=== PATIENT | female | born 1965 | race Caucasian/White ===

== ENCOUNTER 2022-10-04 00:33 | Emergency (ER) | payer MEDICARE, OTHER ==
[~2022-10-04] VITALS: Ht 165.1 cm; Wt 74.8 kg
--- NOTE | 2022-10-04 01:05 | NUR ---
Dr. Barahona at bedside. MSE in proress.
[2022-10-04] MEDS ORDERED: risperiDONE 2 MG TABLET PO SCH (01:15)
[2022-10-04] MEDS ORDERED: IV NORMAL SALINE 1000 ML BAG IV ONE (01:15)
--- NOTE | 2022-10-04 01:27 | NUR ---
Risperdal 2mg not available in the pyxis. notified
[2022-10-04] MEDS ORDERED: OLANZAPINE 5 MG TABLET ONE (01:29)
[2022-10-04] MEDS ORDERED: OLANZAPINE 5 MG TABLET PO ONE (01:30)
[2022-10-04 01:32] LABS: MEAN CORPUSCULAR HEMOGLOBIN 31.5 uug (24.7-32.8); MEAN CORPUSCULAR VOLUME 90.6 fL (75.5-95.3); PLATELET COUNT (AUTO) 309 K/uL (179-408)
[2022-10-04 01:45] LABS: ALANINE AMINOTRANSFERASE 15 U/L (14-59); ALKALINE PHOSPHATASE 54 U/L (50-136); ASPARTATE AMINOTRANSFERASE 11 U/L (15-37); BILIRUBIN,DIRECT 0.1 mg/dL (0.0-0.2); BILIRUBIN,TOTAL 0.7 mg/dL (0.2-1.0); CARBON DIOXIDE 27 mmol/L (21-32); CHLORIDE 95 mmol/L (98-107); CREATININE 0.9 mg/dL (0.6-1.3); GLUCOSE 114 mg/dL (74-106); POTASSIUM 3.1 mmol/L (3.5-5.1); TOTAL PROTEIN, SERUM 8.3 g/dL (6.4-8.2); UREA NITROGEN, BLOOD 11 mg/dL (7-18)
[2022-10-04 01:51] LABS: *BILIRUBIN,URIN NEGATIVE (NEGATIVE); *BLOOD, URINE 1+ (NEGATIVE); *CLARITY,URINE CLEAR (CLEAR); *COLOR,URINE YELLOW (YELLOW); *KETONES,URINE NEGATIVE (NEGATIVE); *UROBILINOGEN,URINE 0.2 E.U./dl (NORMAL); LEUKOCYTE ESTERASE ,URINE NEGATIVE (NEGATIVE); NITRITE, URINE NEGATIVE (NEGATIVE); UGLUCOSE NEGATIVE (NEGATIVE)
[2022-10-04 01:54] LABS: ETHANOL < 3 MG/DL (0-0)
[2022-10-04 02:00] LABS: *AMPHETAMINE, URINE POSITIVE (NEGATIVE); *CANNABINOID, URINE POSITIVE (NEGATIVE); *COCCAINE, URINE POSITIVE (NEGATIVE); *PHENCYCLIDINE SCREEN,URINE NEGATIVE (NEGATIVE)
[2022-10-04 02:01] LABS: BACTERIA,URINE NONE SEEN /HPF (NONE SEEN); SQUAMOUS EPITHELIAL CELL,UR FEW /HPF (NONE SEEN); WBC,URINE 0-3 /HPF (0-3)
[2022-10-04 02:03] LABS: *URINE HCG, QUAL NEGATIVE (NEGATIVE)
[2022-10-04 02:06] LABS: ACETAMINOPHEN < 2.0 ug/mL (10-30)
[2022-10-04] MEDS ORDERED: POTASSIUM CHLORIDE 20 MEQ TAB.PRT.SR ONE (02:11)
--- NOTE | 2022-10-04 02:11 | NUR ---
called patient safety manager Amparo for psych eval
[2022-10-04] MEDS ORDERED: POTASSIUM CHLORIDE 20 MEQ TAB.PRT.SR PO ONE (02:15)
--- NOTE | 2022-10-04 04:17 | NUR ---
Amparo arrived to unit.
--- NOTE | 2022-10-04 04:39 | NUR ---
Staying until morning for psych eval from psychiatrist.
[2022-10-04] MEDS ORDERED: LORAZEPAM 0.5 MG TABLET PO ONE (04:45)
[2022-10-04] MEDS ORDERED: LORAZEPAM 1 MG TABLET ONE (04:48)
--- NOTE | 2022-10-04 06:30 | NUR ---
Patient sleeping. NAD noted.
--- NOTE | 2022-10-04 07:17 | NUR ---
Report given to ERIC Ramey.
--- NOTE | 2022-10-04 08:52 | NUR ---
0718am: Bank Analyst assumes care: Per nursing SBAR from previous night custodian nurse Rosemary, this patient is waiting for the psychiatrist to come to ER. Dr Taylor and Dr Marshall were called. 0730am: 1st contact with patient: she is asleep, easily arousable, oriented x4, her respiration:easy, non-labored, even and symmetrical. Patient denies suicidal or homicidal thoughts at this time. 0832am: Patient is eating hot breakfast tray with good appetite. Patient is for discharge now per Dr Frances. Toiletries were provided as well. 0834am: Patient discharged to home in stable condition. Written and verbal after care instructions given. Patient verbalized understanding and compliance of instructions. Stressed follow up with a psychiatrist or return to ER for worsening s/s. Patient said that she will get fresh clothes in her [employer] car. Patient was instructed that she can use our ER waiting room's bathroom. hotel security officer Nura was updated accordingly.
--- NOTE | 2022-10-04 09:13 | NUR ---
SW consult for patient in the ER for mental health resources. Patient is a 57 year old female that is alert and oriented X4. Patient presents with depressed mood and congruent affect. Patient states her primary contact is her father, Georges Khan ([phone]). Patient states that she currently lives at [address] [place] [address]. 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 Patient states she has a history of substance abuse and the toxicology report is positive for amphetamines, cocaine and cannabinoids. SIMON provided the patient with substance abuse resources for [address] [address] ([phone]), [facility] [address] [facility] [address] ([phone]), and [address] [address] ([phone]). Patient denies suicidal or homicidal ideation. SW provided emotional support, validation, and coping strategies. Patient states that she understands that she needs to get better sleep every night and take her medication every day. Patient states she has a history of schizophrenia and SIMON [place] [id number] [email or web address] [facility] [id number] and the patient states her plan for discharge is to go to [facility] [address] [employer] [facility] [id number].
== END 2022-10-04 08:55 | disposition home or self-care (01) ==
LOC: ER 00:38
DX: F23 Brief psychotic disorder (principal); F20.9 Schizophrenia, unspecified; F14.90 Cocaine use, unspecified, uncomplicated; F10.90 Alcohol use, unspecified, uncomplicated; R00.0 Tachycardia, unspecified; F31.9 Bipolar disorder, unspecified; Z20.822 Contact with and (suspected) exposure to COVID-19; R03.0 Elevated blood-pressure reading, without diagnosis of hypertension
CPT/HCPCS: 80076; 80048; 81001; 84703; 85025; 87426; 36415; 99285; 96360; 96361; 80299; 80320; 80307; J7040; A4663; G0480